=== PATIENT | female | born 1995 | race American Indian/Alaskan Native ===

== ENCOUNTER 2018-06-27 02:52 | Emergency (ER) | payer MEDICAID ==
[2018-06-27 03:44] LABS: Basophils % (Auto) 0.3 % (0.0-1.8); Eosinophils # (Auto) 0.1 K/mm3 (0.0-0.4); Eosinophils % (Auto) 1.2 % (0.0-4.3); Hematocrit 38.1 % (30.3-42.9); Lymphocytes % (Auto) 29.6 % (13.4-35.0); Mean Corpuscular HGB Conc 34 % (30-34); Mean Corpuscular Hemoglobin 33 pg (28-32); Mean Corpuscular Volume 95 fl (79-97); Monocytes # (Auto) 0.5 K/mm3 (0.0-0.8); Monocytes % (Auto) 7.8 % (0.0-7.3); Platelet Count 202 K/mm3 (140-440); Red Cell Distribution Width 12.6 % (13.2-15.2)
[2018-06-27 03:55] LABS: Alanine Aminotransferase 6 units/L (7-56); Albumin 3.7 g/dL (3.9-5); BUN/Creatinine Ratio 23; Blood Urea Nitrogen 16 mg/dL (7-17); Hemolysis Index 1
[2018-06-27 04:11] LABS: Bilirubin,Urine NEG (Negative); Blood,Urine NEG (Negative); Color,Urine Yellow (Yellow); Protein,Urine <15 mg/dL mg/dL (Negative); Urobilinogen,Urine < 2.0 mg/dL (<2.0)
[2018-06-27 04:13] LABS: RBC,Urine < 1.0 /HPF (0.0-6.0)
[2018-06-27] MEDS ORDERED: ZOFRAN IV ONE (06:22)
[2018-06-27] MEDS ORDERED: NACL 0.9% 1000 ML 1,000 ML IV ONE (06:22)
--- NOTE | 2018-06-27 06:22 | Emergency Department Report ---
ED HPI - General Chief complaint: Abdominal Pain Stated complaint: ABDOMINAL PAIN Time Seen by Provider: 06/27/18 06:19 Source: patient Mode of arrival: Ambulatory Limitations: No Limitations - History of Present Illness Initial comments: 22-year-old female 2 para 0. The patient states that she is about 14-1/ 2 weeks . Past 4 days she has had some discomfort in her right lower and right upper quadrant area. She denies vaginal bleeding. She denies any difficulty urinating. She's had no fever or chills. - Related Data Allergies Allergy/AdvReac Type Severity Reaction Status Date / Time Penicillins Allergy Hives Verified 06/27/18 03:10 ED Review of Systems ROS: Stated complaint: ABDOMINAL PAIN Other details as noted in HPI ED Past Medical Hx - Past Medical History Previous Medical History?: No - Surgical History Past Surgical History?: Yes Additional Surgical History: breast - Social History Smoking Status: Former Smoker Substance Use Type: None ED Physical Exam - General Limitations: No Limitations ED Course Vital Signs 06/27/18 06/27/18 02:57 06:21 Temperature 98.6 F 97.8 F Pulse Rate 90 74 Respiratory 18 17 Rate Blood Pressure 112/68 Blood Pressure 106/71 [Left] O2 Sat by Pulse 98 99 Oximetry ED Medical Decision Making - Lab Data Result diagrams: 06/27/18 03:29 06/27/18 03:29 Laboratory Results - last 24 hr 06/27/18 06/27/18 06/27/18 03:29 03:29 03:29 WBC 6.8 RBC 4.00 Hgb 13.0 Hct 38.1 MCV 95 MCH 33 H MCHC 34 RDW 12.6 L Plt Count 202 Lymph % (Auto) 29.6 [place] % (Auto) 7.8 H Eos % (Auto) 1.2 Baso % (Auto) 0.3 Lymph # 2.0 [place] # 0.5 Eos # 0.1 Baso # 0.0 Seg Neutrophils % 61.1 Seg Neutrophils # 4.1 Sodium 136 L Potassium 4.6 Chloride 100.0 Carbon Dioxide 26 Anion Gap 15 BUN 16 Creatinine 0.7 Estimated GFR > 60 BUN/Creatinine Ratio 23 Glucose 92 Calcium 9.0 Total Bilirubin 0.20 AST 11 ALT 6 L Alkaline Phosphatase 46 Total Protein 6.8 Albumin 3.7 L Albumin/Globulin Ratio 1.2 HCG, Quant 36514 H Urine Color Urine Turbidity Urine pH Ur Specific [place] Urine Protein Urine Glucose (UA) Urine Ketones Urine Blood Urine Nitrite Urine Bilirubin Urine Urobilinogen Ur Leukocyte Esterase Urine WBC (Auto) Urine RBC (Auto) U Epithel Cells (Auto) 06/27/18 03:37 WBC RBC Hgb Hct MCV MCH MCHC RDW Plt Count Lymph % (Auto) [place] % (Auto) Eos % (Auto) Baso % (Auto) Lymph # [place] # Eos # Baso # Seg Neutrophils % Seg Neutrophils # Sodium Potassium Chloride Carbon Dioxide Anion Gap BUN Creatinine Estimated GFR BUN/Creatinine Ratio Glucose Calcium Total Bilirubin AST ALT Alkaline Phosphatase Total Protein Albumin Albumin/Globulin Ratio HCG, Quant Urine Color Yellow Urine Turbidity Clear Urine pH 6.0 Ur Specific [place] 1.025 Urine Protein <15 mg/dl Urine Glucose (UA) Neg Urine Ketones Neg Urine Blood Neg Urine Nitrite Neg Urine Bilirubin Neg Urine Urobilinogen < 2.0 Ur Leukocyte Esterase Neg Urine WBC (Auto) 1.0 Urine RBC (Auto) < 1.0 U Epithel Cells (Auto) 2.0 - Radiology Data Radiology results: report reviewed interpreted by me: IMPRESSION: Single intrauterine gestation at 14 weeks and 1 day. Estimated due date: 12/25/2018. The placenta is anterior. There is complete previa. - Medical Decision Making 14 weeks Placenta previa Abdominal pain Critical care attestation.: If time is entered above; I have spent that time in minutes in the direct care of this critically ill patient, excluding procedure time. ED Disposition Clinical Impression: 14 weeks gestation of Placenta previa Qualifiers: Trimester: second trimester Qualified Code(s): O44.02 - Complete placenta previa NOS or without hemorrhage, second trimester Abdominal pain Qualifiers: Abdominal location: generalized Qualified Code(s): R10.84 - Generalized abdominal pain Disposition: DC-01 TO HOME OR SELFCARE Is pt being admited?: No Does the pt Need Aspirin: No Condition: Stable Instructions: (ED), Abdominal Pain (ED) Additional Instructions: Return any acute change or problem. Follow-up with [facility] [employer] person [facility]. Referrals: [facility] [Provider Group] - 2-3 Days Forms: Accompanied Note, Work/School Release Form(ED) Time of Disposition: 08:03
[2018-06-27 06:23] VITALS: BP 106/71
--- NOTE | 2018-06-27 07:51 | Ultrasound Report ---
FINAL REPORT PROCEDURE: US OB > = 14 WEEKS FETUS TECHNIQUE: Real-time transabdominal sonography of the uterus, placenta, amniotic fluid, adnexa, and fetus was performed with image documentation. Measurements were obtained to determine age/size. M-mode Doppler was used to document heartbeat. CPT 53696 HISTORY: 14 week abd pain COMPARISON: No prior studies are available for comparison. FINDINGS: ADDITIONAL GESTATION: None. GENERAL: IUP: Single living intrauterine . Position: Variable Placental position: Anterior, with complete previa MATERNAL: Uterus: Within normal limits. Cervical length: 6.0 cm. Internal Os: Closed. There is a right ovarian cyst measuring 15 millimeters. FETUS: Heart rate and rhythm: 146 beats per minute anatomic survey: Normal. MEASUREMENTS: BPD: 2.6 centimeters corresponding to 14 weeks and 3 days HC: 9.4 centimeters correspond to 14 weeks and 2 days AC: 7.6 centimeters correspond to 14 weeks FL: 1.2 centimeters correspond at 13 weeks and 4 days Mean Gestational Age (composite criteria): 14 weeks and 1 day Ratio biometry: Normal. Estimated Due Date (earliest scan): 12/25/2018 IMPRESSION: Single intrauterine gestation at 14 weeks and 1 day. Estimated due date: 12/25/2018. The placenta is anterior. There is complete previa.
== END 2018-06-27 08:58 | disposition home or self-care (01) ==
LOC: ED 02:52
DX: O44.02 Complete placenta previa NOS or without hemorrhage, second trimester (principal); Z3A.14 14 weeks gestation of pregnancy; Z88.0 Allergy status to penicillin; Z87.891 Personal history of nicotine dependence
CPT/HCPCS: 36415; 76805; 80053; 81001; 84702; 85025; 99284; J7030; J2405